=== PATIENT | female | born 1975 | race Caucasian/White ===

== ENCOUNTER 2020-04-15 00:59 | Outpatient (CLI) | payer OTHER, SELFPAY ==
[2020-04-15 20:48] LABS: SARS-CoV-2 RNA PCR Negative
== END 2020-04-15 01:00 | disposition home or self-care (01) ==
LOC: ANHCOVIDDT 00:59
PROVIDERS: Visit Provider Obstetrics & Gynecology
DX: Z01.812 Encounter for preprocedural laboratory examination (principal); Z11.59 Encounter for screening for other viral diseases
CPT/HCPCS: 87635; C9803; U0003

== ENCOUNTER 2020-04-17 00:22 | Day surgery (SDC) | payer OTHER, SELFPAY ==
[2020-04-06 10:21] VITALS: BMI 24.3
[2020-04-17] VITALS (8 sets, daily range): BP systolic 107–123; BP diastolic 60–86; PULSE 62–82; RESP 14–18; TEMP 36.4–37.3; O2SAT 96–100
--- NOTE | 2020-04-17 12:53 | PM.IMHP ---
H&P: HPI History of Present Illness Date/Time: 04/17/20 12:53 Chief complaint: Desires Sterilization/ Left Ovarian Cyst Narrative: Maryjo Tiwari is a 44 year old female here for tubal sterilization and diagnostic laparoscopy with pelvic washing possible ovarian cystectomy;possible oophorectomy. She had an ovarian cyst which was persistent on ultrasound at [facility] and is concerned about it. Appears simple in nature and overall normal scan January of 2020. Risk/benefits/alternatives discussed. Plan is to proceed with Bilateral tubal salpingectomy since close family history of breast/ovarian cancer and evaluate ovaries at the time of surgery. Patient agreeable Review of Systems Review of Systems: All systems reviewed & are unremarkable except as noted in HPI and below Constitutional: Constitutional: Reports no additional constitutional complaints Eyes: Eyes: Reports no additional eye complaints ENT: Reports system reviewed and no additional complaints, except as documented Cardiovascular: Cardiovascular: Reports no additional cardiovascular complaints Respiratory: Respiratory: Reports no additional respiratory complaints Gastrointestinal: Gastrointestinal: Reports no additional gastrointestinal complaints Genitourinary: Genitourinary: Reports no additional female genitourinary complaints Musculoskeletal: Musculoskeletal: Reports no additional musculoskeletal complaints Integumentary/Breasts: Skin/Breast: Reports system reviewed and no additional complaints, except as docu Neurologic: Reports system reviewed and no additional complaints, except as documented Psychiatric: Psychiatric: Reports no additional psychiatric complaints [facility] Past Medical History Medical History Anxiety Migraine Social History Social History Smoking packs per day: 0.5 Smoking cigarettes per day: 10.0 Years smoked: 27 Smoking pack-years: 13.50 Smoking status: Current every day smoker Tobacco type: cigarettes Spiritual care concerns: No Meds Home Medications and Allergies Home Medications Medication Instructions Recorded Confirmed Type trazodone 50 mg PO HS PRN 04/06/20 04/17/20 History Allergies Allergy/AdvReac Type Severity Reaction Status Date / Time No Known Allergies Allergy Verified 04/17/20 11:53 Exam Const: General: no acute distress HENMT: Ears: TM's normal bilaterally Eyes: General: appearance normal, both eyes and all related structures Neck: Neck: no JVD Resp: Effort & Inspection: normal respiratory effort Auscultation: clear to auscultation bilaterally Cardio: Rate: regular rate Rhythm: regular rhythm GI: Inspection: non-distended GI Palp: Yes Soft to palpation : External Female Exam: normal external appearance Skin: General skin exam: normal color Neuro: General: gait normal Speech: normal speech Extrem: General: normal to inspection Right upper extremity: normal to inspection Left upper extremity: normal to inspection Right lower extremity: normal to inspection Left lower extremity: normal to inspection Psych: Mental Status: mental status grossly normal Assessment and Plan Assessment and plan (1) Request for sterilization: Code(s): Z30.2 - Encounter for sterilization Status: Acute Assessment and Plan: plan is bilateral salpingectomy for sterilization given family history of ovarian/breast cancers (2) Ovarian cyst: Code(s): N83.209 - Unspecified ovarian cyst, unspecified side Status: Acute Assessment and Plan: plan is to evaluate the ovaries at the time of laparoscopy and do pelvic washings. If any suspicous cyst present, plan to do oophorectomy at time of surgery.
--- NOTE | 2020-04-17 13:03 | WPDANESEPPF ---
Anes - Initial Pre Proc Eval Procedure: Operation Date: 04/17/20 14:30 Proposed Procedures p Diagnostic Laparoscopic Bilateral Salpingectomy, Possible Left Oophorectomy, Possible Pelvic Washing - Fernanda Kelsey MD Date/Time: 04/17/20 13:03 Surgeon: Fernanda Kelsey MD Pre Op Diagnosis: Desires Sterilization/ Left Ovarian Cyst Patient Data Age: 44 Gender: F Height: 5 ft 5 in Weight: 66.22 kg Allergies Allergy/AdvReac Type Severity Reaction Status Date / Time No Known Allergies Allergy Verified 04/17/20 11:53 Home Medications Medication Instructions Recorded Confirmed Type trazodone 50 mg PO HS PRN 04/06/20 04/17/20 History Patient hx anesthesia problems: none Family hx anesthesia problems: none PMFSH Past Medical History Medical History (Updated 04/17/20 @ 12:59 by Cl Willson MD) Anxiety Migraine Social History Social History Smoking packs per day: 0.5 Smoking cigarettes per day: 10.0 Years smoked: 27 Smoking pack-years: 13.50 Smoking status: Current every day smoker Tobacco type: cigarettes Spiritual care concerns: No Anes - Eval Final PreProcedure Day of Procedure 04/17/20 13:03 Patient weight: normal Heart: regular rate and rhythm Lungs: clear to auscultation Airway: Mallampati scale class II Neurological: alert and oriented Last oral intake: >/= 8 hours ASA classification: II Emergent: no Anesthetic plan: proceed Anesthesia type and monitoring: general ETT and standard monitoring Informed Consent: The patient's anesthetic plan and its attendant risks and benefits were discussed with the patient/family/POA. Questions were solicited and answers provided to the satisfaction of the patient/family/POA.
--- NOTE | 2020-04-17 13:07 | WPDHPUPDATE1 ---
History and Physical Update Update Date/Time: 04/17/20 13:07 History and Physical has been reviewed, including an updated exam of the patient. There are NO changes in the patient's condition. Risks, benefits, and alternatives have been discussed and questions answered. Patient agrees to proceed with procedure.
[2020-04-17] MEDS: LACTATED RINGERS 1,000 ML 30 ML IV CONT ×2 (13:23→15:37)
[2020-04-17] MEDS: KETOROLAC 15 MG/ML VIAL (*BKC) IV PUSH (13:24)
[2020-04-17] MEDS: ACETAMINOPHEN 500 MG TABLET 1000 MG PO (13:25)
[2020-04-17] MEDS: BUPIVACAINE/EPINEPHRINE 0.5% 30 ML VIAL INFILTRATE (14:34)
--- NOTE | 2020-04-17 15:29 | PM.PROC ---
Procedure Note - Detailed Date of procedure: 04/17/20 Pre-op diagnosis: Desires Sterilization/ Left Ovarian Cyst Post-op diagnosis: other (Desired sterilization, Left ovarian cyst with left ovarian enlargement and adhesions, right ovarian cyst) Procedure performed: Laparoscopic bilateral salpingectomy, right ovarian cystectomy, left oophorectomy, pelvic washings, Grade III cystocele Description of procedure: The patient was taken to the ooperating room where general anesthesia was found to be adequate. A valiente catheter was placed. A speculum used to visualize the cervix. A single toothed tenaculum placed on the anterior lip. An acorn uterine manipulator was placed into the cervix and affixed to the tenaculum. Attention was then turned to the umbilicus which was injected with 0.5% marcaine with epinephrine, incised in the infraumbilical fold with a scalpel and a hemastat used to separate the subcutaneous tissue. An umbilical hernia noted in the upper part of the umbilicus, separate from our incision site. A veres needle used to insert into the peritoneum and saline drop test was positive for intraperitoneal entry. Intraperitoneal pressure was 2mmHg and insufflated to 15mmHg with CO2. A 5mm port was placed with optical entry. The patient was then placed in Trendelenburg and the uterus elevated. The camera inserted and Uterus appeared normal. Right ovary normal, with a simple ovarian cyst. The right fallopian tube normal appearing. The left ovary was enlarged and slightly adhesed to left pelvic sidewall. Fallopian tube appeared normal. A thin layer of adhesion covered the ovary and tube adhesing it to the pelvic side wall. A left lower quadrant port was then placed with direct visualization 2 fingerbreadths medial to ASIS. A right lower quadrant port placed in a similar fashion. Both were 5mm ports. Pelvic washings were obtained at this point. The ligasure was used to free up some of the adhesion and a laparoscopic grasper blunty dissected some as well. Allowing the ovary to rotate outward. The ureter was visible and well away from the operative site. So the infrundibular pelvic ligament was cauterized with 5mm Ligasure and the ovary dissected out of the pelvic side wall. There was good hemostasis. Once able to flip the ovary upward a cyst popped out. This was grasp and placed in the pelvis. The rest of the ovary was amputated across the uteroovarian ligament as was the fallopian tube cauterized at its base and amputated. The right lower quadrant port was replaced with a 10mm port and a endocatch bag placed. The right and left tubes were placed into the bag and the left ovary and cyst placed in the bag as well. This was pulled through the left lower quadrant port site with ease. There were no other lesions in the pelvis. Hemoderm was placed over the ovarian fossa and there were no active bleeders present. The right ovarian cyst was then grasp and resected at its base and pulled through the 5mm port. The procedure at this point was complete. All instruments removed. The left and umbilical port sites were closed with interrupted 4-0 monocryl and the right lower quadrant port closed with 4-0 monocryl in a subcuticular fashion. The incisions were covered with coverall dressings. The instruments were removed from the vagina. The patient began to cough and a Grade III cystocele noted with Grade I uterine descent. The patient tolerated the procedure well Anesthesia: GETA Surgeon: Fernanda Kelsey MD Estimated blood loss (mL): 50 Drains: No Packing: No Pathology: yes (right ovarian cyst, right fallopian tube, left ovarian cyst, left ovary, left fallopian tube, pelvic washings) Complications: No immediate complications Condition: stable Disposition: PACU Findings: enlarged left ovary, with cyst and adhesions to pelvic side wall, right ovarian cyst
--- NOTE | 2020-04-17 15:52 | SUR.PHASEI ---
1553 - Dr. Kelsey at bedside talking with patient
== END 2020-04-17 17:35 | disposition home or self-care (01) ==
PROVIDERS: Visit Provider Obstetrics & Gynecology
PROC: (CPT 49320; principal; 2020-04-17 14:30)
DX: Z30.2 Encounter for sterilization (principal); N73.6 Female pelvic peritoneal adhesions (postinfective); N81.2 Incomplete uterovaginal prolapse; N83.02 Follicular cyst of left ovary; N83.01 Follicular cyst of right ovary; N83.12 Corpus luteum cyst of left ovary; N83.8 Other noninflammatory disorders of ovary, fallopian tube and broad ligament; K42.9 Umbilical hernia without obstruction or gangrene; F41.9 Anxiety disorder, unspecified; F17.210 Nicotine dependence, cigarettes, uncomplicated
CPT/HCPCS: 58661; 58662; 88104; 88108; 88302; 88305; A9270; J1100; J1885; J2250; J2405; J2704; J2710; J3010; J7030; J7120